=== PATIENT | male | born 1960 | race Hispanic/Latino ===

== ENCOUNTER 2024-03-20 14:48 | Outpatient (CLI) | payer MEDICAID | END 2024-03-20 14:49 | disposition home or self-care (01) | LOC: CSHWCC 14:48 | PROVIDERS: ATTEND Nurse Practitioner Family | DX: I87.322 Chronic venous hypertension (idiopathic) with inflammation of left lower extremity (principal); E11.622 Type 2 diabetes mellitus with other skin ulcer; L97.222 Non-pressure chronic ulcer of left calf with fat layer exposed; I50.22 Chronic systolic (congestive) heart failure | CPT/HCPCS: 11042 ==

== ENCOUNTER 2024-03-27 11:27 | Outpatient (CLI) | payer MEDICAID | END 2024-03-27 11:28 | disposition home or self-care (01) | LOC: CSHWCC 11:27 | PROVIDERS: ATTEND Nurse Practitioner Family | DX: I87.322 Chronic venous hypertension (idiopathic) with inflammation of left lower extremity (principal); E11.622 Type 2 diabetes mellitus with other skin ulcer; L97.222 Non-pressure chronic ulcer of left calf with fat layer exposed; I50.22 Chronic systolic (congestive) heart failure | CPT/HCPCS: 11042 ==

== ENCOUNTER 2024-04-03 10:56 | Outpatient (CLI) | payer MEDICAID | END 2024-04-03 10:57 | disposition home or self-care (01) | LOC: CSHWCC 10:56 | PROVIDERS: ATTEND Nurse Practitioner Family | DX: I87.322 Chronic venous hypertension (idiopathic) with inflammation of left lower extremity (principal); E11.622 Type 2 diabetes mellitus with other skin ulcer; L97.222 Non-pressure chronic ulcer of left calf with fat layer exposed; I50.22 Chronic systolic (congestive) heart failure | CPT/HCPCS: 97597 ==

== ENCOUNTER 2024-04-10 16:02 | Outpatient (CLI) | payer MEDICAID | END 2024-04-10 16:03 | disposition home or self-care (01) | LOC: CSHWCC 16:02 | PROVIDERS: ATTEND Nurse Practitioner Family | DX: I87.322 Chronic venous hypertension (idiopathic) with inflammation of left lower extremity (principal); E11.622 Type 2 diabetes mellitus with other skin ulcer; L97.222 Non-pressure chronic ulcer of left calf with fat layer exposed; I50.22 Chronic systolic (congestive) heart failure | CPT/HCPCS: 99213; G0463 ==